=== PATIENT | female | born 1950 | race Caucasian/White ===

== ENCOUNTER → 2017-12-14 | Outpatient (CLI) | payer MEDICARE, OTHER ==
[~2017-12-14] MED LIST: ATEN25 PO; Amitriptyline H25 MG PO; DESV50 PO; Estradiol1 MG PO; Simvastatin20 MG PO
== END | disposition home or self-care (01) ==
LOC: LAB EV 15:34 → LAB SHORT 15:34
DX: R30.0 Dysuria (principal)
CPT/HCPCS: 87077; 87086; 87186

== ENCOUNTER 2021-04-17 11:49 | Day surgery (SDC) | payer MEDICARE, OTHER ==
[~2021-04-17] VITALS: Ht 152.4 cm; Wt 59.2 kg
[~2021-04-17 11:49] MED LIST changes: +ACYC200 PO; +ALBU90OI INH; +EFFEXOR XR150 MG PO; +OXYB5 PO
--- NOTE | 2021-04-17 13:05 | NUR ---
04/17/21 1305 [place] History, Chart, Medications and Allergies reviewed before start of procedure.MONITOR INTACT WITH CONTINUOUS PULSE OXIMETRY AND INTERMITTENT BP.3-LEAD EKG REVIEWED WITH PHYSICIAN PRIOR TO START OF PROCEDURE.O2 VIA N/C INTACT THROUGHOUT SEDATION/PROCEDURE. PATIENT DETERMINED TO BE ASA APPROPRIATE FOR PROPOFOL SEDATION PRIOR TO START OF PROCEDURE BY DR. GAN.
--- NOTE | 2021-04-17 14:05 | NUR ---
Patient up to Ambulate independently. Gait steady. History, Chart, Medications and Allergies reviewed before start of procedure. Discharge instructions reviewed with patient. Patient verbalizes understanding. Copy given to patient to take home. Patient States Post-Procedure ride home has been arranged. Discharged via wheelchair to private car for ride home.
== END 2021-04-17 14:11 | disposition home or self-care (01) ==
LOC: ORSCMMR 11:49 → ORD 13:00 → ORSCMMR 13:00 → ORSCSDS 13:00 → ORSCMMR 14:11
PROVIDERS: Surgery
PROC: 0DBP8ZX Excision of Rectum, Via Natural or Artificial Opening Endoscopic, Diagnostic (ICD-10-PCS; principal; 2021-04-17 13:00)
DX: Z12.11 Encounter for screening for malignant neoplasm of colon (principal); Z86.010 Personal history of colon polyps; D12.8 Benign neoplasm of rectum; I10 Essential (primary) hypertension; K21.9 Gastro-esophageal reflux disease without esophagitis; E78.5 Hyperlipidemia, unspecified; F17.210 Nicotine dependence, cigarettes, uncomplicated; Z79.899 Other long term (current) drug therapy
CPT/HCPCS: 88305; J2704; J7120

== ENCOUNTER 2023-06-15 03:35 | Inpatient (IN) | payer MEDICARE, OTHER ==
[~2023-06-15] VITALS: Ht 152.4 cm; Wt 55.4 kg
[~2023-06-15 03:35] MED LIST changes: -OXYB5 PO; +Oxybutynin Chlor5 M1 PO
[2023-06-15 04:05] LABS: Hematocrit 41.3 % (33.0-51.0); Hemoglobin 13.6 g/dL (11.5-16.0); Mean Corpuscular HGB 29.9 pg (26.0-34.0); Mean Corpuscular HGB Conc 32.9 g/dL (31.5-36.5); Mean Corpuscular Volume 91 fL (80-100); Mean Platelet Volume 10.3 fL (9.1-12.4); Platelet Count 292 K/mm3 (150-400); RDW Standard Deviation 43.7 fL (35.1-46.3); Red Blood Cell Count 4.55 M/mm3 (3.80-5.20); White Blood Cell Count 13.13 K/mm3 (4.00-11.30)
[2023-06-15 04:15] LABS: Base Excess Venous -4.6 mmol/L; Bicarbonate Venous 21.5 mmol/L (24.0-30.0); PCO2 Venous 31.7 mmHg (38-42); pH Blood Venous 7.41 (7.34-7.37)
[2023-06-15 04:44] LABS: Albumin, Blood 2.5 g/dL (3.4-5.0); Albumin/Globulin Ratio 0.5 (0.8-1.8); Bilirubin, Total 0.6 mg/dL (0.1-1.0); Bun/Creatinine Ratio 23.5 (12.0-20.0); Calcium, Blood 8.6 mg/dL (8.5-10.1); Creatinine, Blood 0.68 mg/dL (0.40-1.00); Globulin, Blood 5.1 g/dL (2.2-4.0); Potassium, Blood 4.7 mmol/L (3.5-5.5); Total Protein, Blood 7.6 g/dL (6.4-8.2)
[2023-06-15 04:56] LABS: BAND PERCENT MAN 1 % (0-8); BASOPHILS PERCENT MAN 0 % (0-2); EOSINOPHILS ABSOLUTE MAN 0.13 K/mm3 (0.00-0.68); EOSINOPHILS PERCENT MAN 1 % (0-6); LYMPHOCYTES ABSOLUTE MAN 0.65 K/mm3 (0.84-5.20); LYMPHOCYTES PERCENT MAN 5 % (21-46); METAMYELOCYTE ABSOLUTE MAN 0.26 K/mm3 (0.00-0.00); METAMYELOCYTE PERCENT MAN 2 % (0-0); MONOCYTES PERCENT MAN 13 % (4-13); NEUTROPHILS ABSOLUTE MAN 10.37 K/mm3 (1.96-9.15); SEG NEUTROPHILS PERCENT MAN 78 % (41-73); TOTAL CELLS COUNTED 100
[2023-06-15 05:09] LABS: Influenza B, PCR NEGATIVE (NEGATIVE); Resp Syncytial Virus, PCR NEGATIVE (NEGATIVE); SARS-Cov-2 (COVID-19) PCR, MMC NEGATIVE (NEGATIVE)
[2023-06-15 05:17] LABS: Influenza A, PCR POSITIVE (NEGATIVE)
[2023-06-15] MEDS ORDERED: AMIT25 PO (07:40)
[2023-06-15 13:59] VITALS: BP 141/75
--- NOTE | 2023-06-15 14:00 | NUR ---
PT ARRIVED TO ROOM 328 VIA GURNEY FROM ED WITH NONREBREATHER TIL AIRVO ARRIVED. ABLE TO MOVE SELF WITH MIN ASSIST FROM GURNEY TO BED. SOB WITH ANY ACTIVITY. DAUGHTER AT BEDSIDE.
--- NOTE | 2023-06-15 18:35 | NUR ---
SHIFT SUMMARY PT UP TO BSC WITH MIN ASSIST THIS AFTERNOON. CONTINUES TO GET SOB WITH ACTIVITY BUT STATES ITS BETTER THAN WHEN SHE FIRST ARRIVED TO HOSPITAL. FAMILY AT BEDSIDE MOST OF DAY. CONITNUOUS PULSE OX APPLIED TO MONITER RESP STATUS. AIRVO ON AT 35L/40%. DIET ORDERED. PT STATES POOR APPETITE SINCE BEING SICK.
[2023-06-15 21:16] VITALS: BP 129/67
[2023-06-16 03:15] VITALS: BP 139/74
--- NOTE | 2023-06-16 06:26 | NUR ---
SHIFT SUMMARY: PT IS ADMITTED FOR ACUTE HYPOXIC RESPIRATORY FAILURE AND IS A FULL CODE. IS ALERT AND ABLE TO MAKE NEEDS KNOWN. ADLs HAVE BEEN 1P MIN THROUGH SHIFT. IS CURRENTLY ON DROPLET ISO. EXPRESSED SOME DISCOMFORT TO THE LOWER LEFT CHEST WHEN TRYING TO BREATH MORE THAN SHALLOW OR COUGHING. IS CURRENTLY ON 35L O2 VIA AREO TO MAINTAIN SPO2 GREATER THAN 90%. IVS BILAT ARE PATENT WITH DRESSINGS THAT ARE CDI. MICRO NOTIFIED THIS NURSE OF BLOOD POSITIVE X1 GRAM POS COCCI WITH CLUSTERS. SPOKE WITH PHARMACY WAS INFORMED THAT CURRENT MEDICATIONS SHOULD COVER BACTERIA GROWTH. NO MRSA FOUND IN HISTORY. NOTIFIED DR VALENCIA TO WHICH HE STATED OK.
[2023-06-16 07:29] VITALS: BP 154/79
[2023-06-16 07:49] LABS: BASOPHILS ABSOLUTE AUTO 0.12 K/mm3 (0.00-0.23); BASOPHILS PERCENT AUTO 1 % (0-2); EOSINOPHILS PERCENT AUTO 0 % (0-6); Hematocrit 36.5 % (33.0-51.0); Hemoglobin 12.1 g/dL (11.5-16.0); Mean Corpuscular HGB Conc 33.2 g/dL (31.5-36.5); Mean Corpuscular Volume 90 fL (80-100); Mean Platelet Volume 10.2 fL (9.1-12.4); Platelet Count 414 K/mm3 (150-400); RDW Coefficient Variation 13.2 % (11.7-14.2); RDW Standard Deviation 43.1 fL (35.1-46.3); Red Blood Cell Count 4.04 M/mm3 (3.80-5.20); White Blood Cell Count 18.49 K/mm3 (4.00-11.30)
[2023-06-16 07:53] LABS: IMMATURE GRAN ABSOLUTE AUTO 0.88 K/mm3 (0.00-0.10); IMMATURE GRAN PERCENT AUTO 5 % (0-1); LYMPHOCYTES PERCENT AUTO 6 % (21-46); MONOCYTES ABSOLUTE AUTO 1.77 K/mm3 (0.16-1.47); MONOCYTES PERCENT AUTO 10 % (4-13); NEUTROPHILS ABSOLUTE AUTO 14.62 K/mm3 (1.96-9.15); NEUTROPHILS PERCENT AUTO 79 % (41-73)
[2023-06-16 08:05] LABS: Albumin, Blood 2.1 g/dL (3.4-5.0); Albumin/Globulin Ratio 0.4 (0.8-1.8); Bilirubin, Total 0.4 mg/dL (0.1-1.0); Calcium, Blood 8.3 mg/dL (8.5-10.1); Creatinine, Blood 0.53 mg/dL (0.40-1.00); Globulin, Blood 4.9 g/dL (2.2-4.0); Potassium, Blood 4.1 mmol/L (3.5-5.5)
[2023-06-16 15:39] VITALS: BP 140/77
--- NOTE | 2023-06-16 17:56 | NUR ---
SHIFT SUMMARY 1 PERSON ASSIST UP TO BSC. DOES GET SOB WITH ACTIVITY BUT LESS THAN YESTERDAY. OFF OF AIRVO THIS MORNING AND ON 5L/M BY DC. SATS LOW 90'S SINCE AIRVO REMOVED. FAMILY AT BEDSIDE CONTINUOUSLY AND PROVIDING SUPPORT. ATE BREAKFAST BUT NOT LUNCH. STATES SHE HASN'T HAD A GOOD APPETITE SINCE BEING SICK. APPEARS STABLE ON FEET WHEN UP TO COMMODE.
[2023-06-16 20:14] VITALS: BP 140/70
[2023-06-17 05:02] VITALS: BP 121/68
--- NOTE | 2023-06-17 05:39 | NUR ---
SHIFT SUMMARY: PATIENT A/OX4, PLEASANT AND COOPERATIVE c CARE. PATIENT DENIES CP/PRESSURE, N/V AND DIZZINESS. PATIENT ON 5L OF O2 AT BEGINNING OF SHIFT, ON CONTINUES PULSE OX c SPO2 RANGES 94-97%. AT AROUND MN O2 TITRATED TO 3L c SPO2 RANGES 93-95% WHILE SLEEPING. AT AROUND 0510, PATIENT UP TO BSC c SBA AND O2 DROPPED TO 86%. PATIENT PLACED ON 4L OF O2 AND CURRENTLY SATING 90-93%. PATIENT APPEARS TO BE RESTING IN BED, RR IS EVEN AND UNLABORED. PATIENT SLEPT OFF AND ON T/O SHIFT. PATIENT RECEIVED SCHEDULED MEDS PER EMAR. VITAL SIGNS REVIEWED. CALL LIGHT IN REACH. FAMILY STAYED c PATIENT OVERNIGHT. PATIENT AND FAMILY HAS NO COMPLAINTS OR DENIES NEW CONCERNED THIS SHIFT.
[2023-06-17 06:35] LABS: Hematocrit 35.3 % (33.0-51.0); Hemoglobin 11.6 g/dL (11.5-16.0); Mean Corpuscular HGB 29.5 pg (26.0-34.0); Mean Corpuscular HGB Conc 32.9 g/dL (31.5-36.5); Mean Corpuscular Volume 90 fL (80-100); Platelet Count 462 K/mm3 (150-400); RDW Coefficient Variation 13.2 % (11.7-14.2); RDW Standard Deviation 43.5 fL (35.1-46.3); Red Blood Cell Count 3.93 M/mm3 (3.80-5.20); White Blood Cell Count 15.02 K/mm3 (4.00-11.30)
[2023-06-17 07:02] LABS: Albumin, Blood 1.9 g/dL (3.4-5.0); Albumin/Globulin Ratio 0.5 (0.8-1.8); Bilirubin, Total 0.3 mg/dL (0.1-1.0); Bun/Creatinine Ratio 48.1 (12.0-20.0); Creatinine, Blood 0.67 mg/dL (0.40-1.00); Globulin, Blood 4.2 g/dL (2.2-4.0); Potassium, Blood 3.9 mmol/L (3.5-5.5); Total Protein, Blood 6.1 g/dL (6.4-8.2)
[2023-06-17 07:30] LABS: BASOPHILS PERCENT MAN 0 % (0-2); EOSINOPHILS PERCENT MAN 0 % (0-6); LYMPHOCYTES ABSOLUTE MAN 0.75 K/mm3 (0.84-5.20); LYMPHOCYTES PERCENT MAN 5 % (21-46); METAMYELOCYTE PERCENT MAN 2 % (0-0); MONOCYTES ABSOLUTE MAN 0.75 K/mm3 (0.16-1.47); MONOCYTES PERCENT MAN 5 % (4-13); NEUTROPHILS ABSOLUTE MAN 13.21 K/mm3 (1.96-9.15); SEG NEUTROPHILS PERCENT MAN 88 % (41-73); TOTAL CELLS COUNTED 100
[2023-06-17 07:45] VITALS: BP 136/72
[2023-06-17 15:40] VITALS: BP 150/83
--- NOTE | 2023-06-17 18:20 | NUR ---
SHIFT SUMMARY PT WITH O2 INCREASED TO 5L/M DUE TO SATS HOVERING AT 87%. AFTER WORKING WITH O.T. SHE HAD A COUGHING EPISODE AND SATS INCREASED TO MID 90'S. SLEPT ALL AFTERNOON. SPOKE WITH MD ABOUT SATS IMPROVING AFTER COUGHING EPISODES. INCENTIVE SPIROMETER GIVEN AND PT EDUCATED ON. FAMILY AT BEDSIDE ALL DAY.
[2023-06-17 20:19] VITALS: BP 175/83
--- NOTE | 2023-06-18 04:44 | NUR ---
1900: ASSUMED CARE OF PT, REPORT RECEIVED FROM JOSÉ MIGUEL FRASER. PT IS LAYING IN BED ON HER BACK, DAUGHTER AT THE THE BEDSIDE. A/O, SBA IN THE ROOM. OXYGEN AT 5LPM NC. CONTINUOUS PULSE OXIMETER IS ON. TELEMETRY IN PLACE, SEE EMR. SALINE LOCK TO ROHIT LOWER ARMS. PT IS ABLE TO MAKER NEEDS KNOWN THROUGHOUT THE SHIFT. OXYGEN TITRATION FROM 5 TO 4LITERS. PT MAINTAINING AT 93-96%. TITRATION DOWN TO 3LPM MAINTAINING 90 TO 94% AT REST. PT WAS ABLE TO SLEEP MOST OF THE NIGHT PER HER DAUGHTER. UPON WAKING PT GOT UP TO THE BATHROOM, SAT IN THE CHAIR, AND THEN BRUSHED HER TEETH. WITH THIS ACTIVITY HER OXYGEN DROPED TO MID 80'S FOR A FEW MOMENTS PER HER DAUGHTER. THIS RN OBSERVES OXYGEN SATURATION AT 88% UPON ENTERING THE ROOM, PT HAS BEEN AT REST FOR APPROXIMATLY 5 MINUTES. HTN AT THIS TIME AFTER ACTIVITY, WILL CONTINUTE TO MONITOR WITH REPEAT VITALS. SAFETY MEASURE TAKEN THROUGHOUT THE NIGHT, FAMILY AT THE BEDSIDE. NEEDS MET.
[2023-06-18 04:45] VITALS: BP 176/84
[2023-06-18 05:27] VITALS: BP 162/90
[2023-06-18 05:29] LABS: Hematocrit 37.6 % (33.0-51.0); Hemoglobin 12.4 g/dL (11.5-16.0); Mean Corpuscular Volume 91 fL (80-100); Mean Platelet Volume 9.4 fL (9.1-12.4); Platelet Count 509 K/mm3 (150-400); RDW Coefficient Variation 12.9 % (11.7-14.2); RDW Standard Deviation 42.7 fL (35.1-46.3); Red Blood Cell Count 4.14 M/mm3 (3.80-5.20); White Blood Cell Count 12.97 K/mm3 (4.00-11.30)
[2023-06-18 05:58] LABS: Creatinine, Blood 0.56 mg/dL (0.40-1.00); Potassium, Blood 4.1 mmol/L (3.5-5.5)
[2023-06-18 06:27] LABS: BAND PERCENT MAN 2 % (0-8); BASOPHILS PERCENT MAN 0 % (0-2); EOSINOPHILS ABSOLUTE MAN 0.12 K/mm3 (0.00-0.68); EOSINOPHILS PERCENT MAN 1 % (0-6); LYMPHOCYTES ABSOLUTE MAN 1.68 K/mm3 (0.84-5.20); LYMPHOCYTES PERCENT MAN 13 % (21-46); METAMYELOCYTE ABSOLUTE MAN 0.12 K/mm3 (0.00-0.00); METAMYELOCYTE PERCENT MAN 1 % (0-0); MONOCYTES ABSOLUTE MAN 1.16 K/mm3 (0.16-1.47); MONOCYTES PERCENT MAN 9 % (4-13); MYELOCYTE ABSOLUTE MAN 0.51 K/mm3 (0.00-0.00); MYELOCYTE PERCENT MAN 4 % (0-0); NEUTROPHILS ABSOLUTE MAN 9.33 K/mm3 (1.96-9.15); SEG NEUTROPHILS PERCENT MAN 70 % (41-73); TOTAL CELLS COUNTED 100
[2023-06-18 07:34] VITALS: BP 157/86
[2023-06-18] MEDS ORDERED: AZIT500 PO (10:13)
[2023-06-18] MEDS ORDERED: VISBIOME 112.51 EACH PO (10:13)
[2023-06-18] MEDS ORDERED: CEFP200 PO (10:14)
--- NOTE | 2023-06-18 13:00 | NUR ---
1230-DC PT BROUGHT DOWN IN WC WITH HR MANAGER AND FAMILY FOR DC. PT STABLE AND LEFT WITH ALL BELONGINGS.
== END 2023-06-18 12:35 | disposition home or self-care (01) | DRG 871 ==
LOC: ER 03:35 → ERHOLD 07:07 → MEDS 13:49
PROVIDERS: Student in an Organized Health Care Education/Training Program; ADMIT Family Medicine
PROC: 3E03329 Introduction of Other Anti-infective into Peripheral Vein, Percutaneous Approach (ICD-10-PCS; principal; 2023-06-15)
PROC: 5A0935A Assistance with Respiratory Ventilation, Less than 24 Consecutive Hours, High Flow/Velocity Cannula (ICD-10-PCS; 2023-06-15)
DX: A41.9 Sepsis, unspecified organism (principal); J10.00 Influenza due to other identified influenza virus with unspecified type of pneumonia; J96.01 Acute respiratory failure with hypoxia; J15.9 Unspecified bacterial pneumonia; R07.81 Pleurodynia; I10 Essential (primary) hypertension; F17.210 Nicotine dependence, cigarettes, uncomplicated; F32.A Depression, unspecified; E78.5 Hyperlipidemia, unspecified; K21.9 Gastro-esophageal reflux disease without esophagitis; N28.1 Cyst of kidney, acquired; Z11.52 Encounter for screening for COVID-19; Z88.8 Allergy status to other drugs, medicaments and biological substances; Z79.899 Other long term (current) drug therapy; Z79.2 Long term (current) use of antibiotics; Z79.51 Long term (current) use of inhaled steroids; Z98.890 Other specified postprocedural states; Z90.710 Acquired absence of both cervix and uterus
CPT/HCPCS: 0241U; 36415; 71046; 71260; 80048; 80053; 82803; 83605; 83880; 84484; 85025; 85379; 87040; 87077; 93005; 93010; 94640; 94664; 94760; 94761; 94762; 96365-59; 96366-59; 96367-59; 96375-59; 97161; 97165; 97535; 99285-25; A9270; J0456; J0696; J1650; J1885; J2930; J3010; J7030; J7050; Q9967